=== PATIENT | female | born 1970 | race Caucasian/White ===

== ENCOUNTER 2017-06-16 10:22 | Emergency (ER) | payer MEDICAID ==
[~2017-06-16] VITALS: Ht 160 cm; Wt 100.0 kg
[~2017-06-16 10:22] MED LIST: FLUT1SPR9 NASAL; MEDR4PAK3 PO
[2017-06-16 10:23] VITALS: BP 133/82; PULSE 111; RESP 20; TEMP 98.7; O2SAT 97
[2017-06-16 11:53] LABS: BACTERIA, URINE MANY /hpf; BLOOD, URINE MOD (NEG); COMMENT (UR) CULTURE INDICATED; CULTURE IF INDICATED CULTURE INDICATED; GLUCOSE,URINE NEG (NEG); KETONE, URINE NEG (NEG); SQUAMOUS EPITHELIAL CELL URINE 5 /hpf (0-5); URINE COLOR YELLOW (YELLW/STRAW)
[2017-06-16 12:00] LABS: NITRITE,URINE POS (NEG)
--- NOTE | 2017-06-16 12:34 | PD ---
HPI . left sided flank pain and dysuria x few days Chief Complaint: Flank/Kidney Pain Time Seen by Provider: 12:34 Travel History International Travel<30 days: No Contact w/Intl Traveler<30days: No Traveled to known affect area: No History of Present Illness HPI 46-year-old female with history of urinary tract infections in the past here with complaints of left-sided flank pain and dysuria for the past few days. Patient tells me that she was recently treated for urinary tract infection one month ago with Macrobid, now her symptoms have returned. She says that she feels like her left side is squeezing. She denies any fever or chills. She has no other complaints. PFSH Past Medical History Diminished Hearing: No ?: Not LMP: 05/2017 Menopausal: Yes : 4 Para: 4 Dilation and Curettage (D&C): Yes (polyp rmoval, oblation) Social History Alcohol Use: No Tobacco Use: Yes (1 pack every 3 or 4 days) Substance Use: No Allergies-Medications (Allergen,Severity, Reaction): Coded Allergies: Sulfa (Sulfonamide Antibiotics) (Unverified Allergy, Severe, hives, ) Reported Meds & Prescriptions Reported Meds & Active Scripts Active Lortab (Hydrocodone-Acetaminophen) 5-325 Mg Tab 1 Tab PO Q6H PRN Ciprofloxacin (Ciprofloxacin HCl) 500 Mg Tab 500 Mg PO BID 10 Days Reported Flonase Nasal [place] (Fluticasone Nasal [place]) 50 Mcg/Act [place] 50 Mcg EACH NARE BID Rizatriptan (Rizatriptan Benzoate) 10 Mg Tab 10 Mg PO DIRECTED Review of Systems General / Constitutional: No: Fever Eyes: No: Visual changes HENT: No: Headaches Cardiovascular: No: Chest Pain or Discomfort Respiratory: No: Shortness of Breath Gastrointestinal: No: Abdominal Pain Genitourinary: Positive: Dysuria, Flank Pain Musculoskeletal: No: Pain Skin: No Rash Neurologic: No: Weakness Psychiatric: No: Depression Endocrine: No: Polydipsia Hematologic/Lymphatic: No: Easy Bruising Physical Exam Narrative GENERAL: AAO x 3, no acute distress, Well-nourished, well-developed patient. very comfortable SKIN: Warm and dry. No visible rashes or bruising. HEAD: Normocephalic and atraumatic. EYES: No scleral icterus. No injection or drainage. ENT: No nasal drainage noted. Mucous membranes pink. Airway patent. NECK: Supple, trachea midline. No JVD. CARDIOVASCULAR: Regular rate and rhythm without murmurs, gallops, or rubs. RESPIRATORY: Breath sounds equal bilaterally. No accessory muscle use. No rhonchi or rales. GASTROINTESTINAL: Abdomen soft, non-tender, nondistended. no rebound or guarding EXTREMITIES: No cyanosis or edema. BACK: + left sided CVA tenderness NEURO: CN II-12 intact, foot cutter strength normal b/l, UE and LE 5/5, no focal deficits PSYCH: AAO x 3, normal affect. Data Data Last Documented VS Vital Signs Date Time Temp Pulse Resp B/P Pulse Ox O2 Delivery O2 Flow Rate FiO2 06/16/17 14:15 104 97 Room Air 06/16/17 10:23 98.7 20 133/82 Orders Urinalysis - C+S If Indicated (06/16/17 10:27) Urine Culture (06/16/17 10:50) Complete Blood Count With Diff (06/16/17 12:37) Basic Metabolic Panel (Bmp) (06/16/17 12:37) Ketorolac Inj (Toradol Inj) (06/16/17 12:45) Morphine Inj (Morphine Inj) (06/16/17 13:30) Ondansetron Inj (Zofran Inj) (06/16/17 13:30) Ct Abd/Pel W/O Iv Contrast (06/16/17 ) Ed Urine Pregnancytest Poc (06/16/17 13:23) Acetamin-Hydrocod 325-5 Mg ([place] 5-325 (06/16/17 15:45) Morphine Inj (Morphine Inj) (06/16/17 16:00) Labs Laboratory Tests Test 06/16/17 06/16/17 10:50 13:00 Urine Color YELLOW Urine Turbidity CLOUDY Urine pH 6.0 Urine Specific [place] 1.017 Urine Protein 300 mg/dL Urine Glucose (UA) NEG mg/dL Urine Ketones NEG mg/dL Urine Occult Blood MOD Urine Nitrite POS Urine Bilirubin NEG Urine Urobilinogen LESS THAN 2.0 MG/DL Urine Leukocyte Esterase LARGE Urine RBC 74 /hpf Urine WBC /hpf Urine WBC Clumps MANY Urine Squamous Epithelial 5 /hpf Cells Urine Bacteria MANY /hpf Microscopic Urinalysis Comment CULTURE INDICATED White Blood Count 12.4 TH/MM3 Red Blood Count 4.85 MIL/MM3 Hemoglobin 14.3 GM/DL Hematocrit 41.9 % Mean Corpuscular Volume 86.3 FL Mean Corpuscular Hemoglobin 29.5 PG Mean Corpuscular Hemoglobin 34.2 % Concent Red Cell Distribution Width 13.3 % Platelet Count 298 TH/MM3 Mean Platelet Volume 7.4 FL Neutrophils (%) (Auto) 77.2 % Lymphocytes (%) (Auto) 14.6 % Monocytes (%) (Auto) 6.0 % Eosinophils (%) (Auto) 1.7 % Basophils (%) (Auto) 0.5 % Neutrophils # (Auto) 9.6 TH/MM3 Lymphocytes # (Auto) 1.8 TH/MM3 Monocytes # (Auto) 0.7 TH/MM3 Eosinophils # (Auto) 0.2 TH/MM3 Basophils # (Auto) 0.1 TH/MM3 CBC Comment DIFF FINAL Differential Comment Sodium Level 138 MEQ/L Potassium Level 3.7 MEQ/L Chloride Level 103 MEQ/L Carbon Dioxide Level 26.9 MEQ/L Anion Gap 8 MEQ/L Blood Urea Nitrogen 8 MG/DL Creatinine 1.03 MG/DL Estimat Glomerular Filtration 58 ML/MIN Rate Random Glucose 119 MG/DL Calcium Level 9.1 MG/DL MDM Medical Decision Making Medical Screen Exam Complete: Yes Emergency Medical Condition: Yes Medical Record Reviewed: Yes Differential Diagnosis UTI, pyelonephritis, less likely nephrolithiasis Narrative Course 46-year-old female here with what appears to be urinary tract infection possible pyelonephritis. Labs have been obtained. Patient does report some pain, will provide her with some Toradol here in the emergency department. She is allergic to sulfa. Patient continued to complain of pain. Morphine and zofran given. CT abd/pelvis to check for Kidney stones 1531: patient still in pain: Lortab given I also provided her with Morphine after discussing with Dr. Leonardo. CT with possible stone and what appears to be pyelonephritis. I will treat patient with Cipro outpatient basis. Provide her with some Lortab for pain control. Current follow-up with primary care provider. I discussed the results and treatment plan with patient. She was in agreement. Diagnosis Primary Impression: Pyelonephritis Patient Instructions: General Instructions Additional Instructions: Please return to emergency department if your symptoms return or worsen. Follow up with your primary care provider. Take medications as prescribed. Med/Other Pt SpecificInfo: Prescription(s) given Scripts Hydrocodone-Acetaminophen (Lortab)5-325 Mg Tab1 Tab PO Q6H PRN (PAIN) #12 TAB Ref 0 Prov:Rupesh Leonardo MD 06/16/17 Ciprofloxacin 500 Mg [id number] Mg PO BID 10 Days Ref 0 Prov:Rupesh Leonardo MD 06/16/17 Disposition: 01 DISCHARGE HOME Condition: Stable Miranda Arreola Jun 16, 2017 12:34
[2017-06-16] MEDS ORDERED: FLUT1SPR5 EACH NARE (12:43)
[2017-06-16] MEDS ORDERED: RIZA10TA2 PO (12:43)
[2017-06-16] MEDS ORDERED: KETOROLAC TROMETHAMINE 60 MG/2 ML (IM) VIAL IM ONE (12:45)
[2017-06-16 13:10] LABS: AUTOMATED NEUTROPHIL # 9.6 TH/MM3 (1.8-7.7); BASOPHIL # 0.1 TH/MM3 (0-0.2); BASOPHIL % 0.5 % (0.0-2.0); EOSINOPHIL # 0.2 TH/MM3 (0-0.4); EOSINOPHIL % 1.7 % (0.0-4.0); HEMATOCRIT 41.9 % (35.0-46.0); HEMO FLAGS DIFF FINAL; LYMPH % 14.6 % (9.0-44.0); LYMPHOCYTE # 1.8 TH/MM3 (1.0-4.8); MEAN CELL VOLUME 86.3 FL (80.0-100.0); MEAN CORPUSCULAR HEMOGLOBIN 29.5 PG (27.0-34.0); MEAN CORPUSCULAR HGB CONC 34.2 % (32.0-36.0); NEUT % 77.2 % (16.0-70.0); PLATELET COUNT 298 TH/MM3 (150-450); RED BLOOD COUNT 4.85 MIL/MM3 (4.00-5.30); RED CELL DISTRIBUTION WIDTH 13.3 % (11.6-17.2); WHITE BLOOD COUNT 12.4 TH/MM3 (4.0-11.0)
[2017-06-16 13:26] LABS: BICARBONATE 26.9 MEQ/L (21.0-32.0); POTASSIUM 3.7 MEQ/L (3.5-5.1)
[2017-06-16] MEDS ORDERED: ONDANSETRON HCL 4 MG/2 ML VIAL IV PUSH ONE (13:30)
[2017-06-16] MEDS ORDERED: MORPHINE SULFATE 4 MG/ML INJ IV PUSH ONE ×2 (13:30→16:00)
[2017-06-16 14:15] VITALS: PULSE 104; O2SAT 97
[2017-06-16] MEDS ORDERED: ACETAMINOPHEN/HYDROcodone 325 MG/5 MG TAB PO ONE (15:45)
--- NOTE | 2017-06-16 15:47 | RADRPT ---
EXAM DATE/TIME: 06/16/2017 15:15 [facility] COMPARISON: No previous studies available for comparison. INDICATIONS : Patient complains of left flank pain. ORAL CONTRAST: No oral contrast ingested. RADIATION DOSE: 8.52 CTDIvol (mGy) MEDICAL HISTORY : None SURGICAL HISTORY : None. ENCOUNTER: Initial ACUITY: 3 days PAIN SCALE: 6/10 LOCATION: Left flank TECHNIQUE: Volumetric scanning of the abdomen and pelvis was performed. Using automated exposure control and ad justment of the mA and/or kV according to patient size, radiation dose was kept as low as reasonably achievable to obtain optimal diagnostic quality images. DICOM format image data is available electro nically for review and comparison. FINDINGS: LOWER LUNGS: The visualized lower lungs are clear. LIVER: Homogeneous density without lesion. There is no dilation of the biliary tree. No calcified gallston es. SPLEEN: Normal size without lesion. PANCREAS: Within normal limits. KIDNEYS: Normal in size and shape. There is no mass, stone, or hydronephrosis. There is some minimal thickeni ng of the left renal pelvis. The left ureter is questionably thickened. ADRENAL GLANDS: Within normal limits. VASCULAR: There is no aortic aneurysm. BOWEL/MESENTERY: The stomach, small bowel, and colon demonstrate no acute abnormality. There is no free intraperitone al air or fluid. ABDOMINAL WALL: There is a minimal umbilical hernia containing mesenteric fat. RETROPERITONEUM: There is no lymphadenopathy. BLADDER: No wall thickening or mass. REPRODUCTIVE: No pelvic masses seen. Bilateral fallopian tube occlusion devices are seen. INGUINAL: There is no lymphadenopathy or hernia. MUSCULOSKELETAL: Within normal limits for patient age. CONCLUSION: Questionable thickening of the left renal pelvis and left ureter which raises the possibility of eith er a passed stone or inflammatory change/pyelonephritis. This can be correlated clinically. Rachid Fernández MD on June 16, 2017 at 15:39 Board Certified Radiologist. This report was verified electronically.
[2017-06-16] MEDS ORDERED: CIPR500T2 PO (15:51)
[2017-06-16] MEDS ORDERED: HYDR-3533 PO (15:51)
[2017-06-16 15:57] VITALS: BP 137/74; PULSE 103; RESP 21; O2SAT 99
== END 2017-06-16 17:16 | disposition home or self-care (01) ==
LOC: NEPD 10:22
DX: N10 Acute pyelonephritis (principal); B96.29 Other Escherichia coli [E. coli] as the cause of diseases classified elsewhere
CPT/HCPCS: 74176; 80048; 81001; 84703; 85025; 87077; 87086; 87186; 96372; 96374; 96375; 96376; 99285; J1885; J2270; J2405

== ENCOUNTER 2017-08-01 16:51 | Emergency (ER) | payer MEDICAID ==
[~2017-08-01] VITALS: Ht 165.1 cm; Wt 100.0 kg
[~2017-08-01 16:51] MED LIST changes: +CIPR500T2 PO; +FLUT1SPR5 EACH NARE; -FLUT1SPR9 NASAL; +HYDR-3533 PO; -MEDR4PAK3 PO; +RIZA10TA2 PO
[2017-08-01 16:52] VITALS: BP 143/91; PULSE 108; RESP 16; TEMP 97.8; O2SAT 97
--- NOTE | 2017-08-01 17:01 | PD ---
Physical Exam Date Seen by Provider: Aug 01, 2017 Time Seen by Provider: 16:58 Data Data Last Documented VS Vital Signs Date Time Temp Pulse Resp B/P (MAP) Pulse Ox O2 Delivery O2 Flow Rate FiO2 08/01/17 16:52 97.8 108 16 143/91 (108) 97 MDM Supervised Visit with CHRISTOPHER: No Narrative Course 47-year-old female presents to the ED for evaluation 24 hour history of abdominal cramping, watery diarrhea. 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 She is visiting from [place]. She called her primary care who prescribed 1 gram of azithromycin. Patient states she took the medication 5 days ago. Vitals reviewed. Patient seen in triage, awaiting bed placement. Ivy Agosto Aug 01, 2017 17:01
[2017-08-02] MEDS ORDERED: METR-1 PO (09:42)
== END 2017-08-01 19:00 | disposition left against medical advice (07) ==
LOC: NED 16:51
DX: R10.9 Unspecified abdominal pain (principal); R19.7 Diarrhea, unspecified; Z53.21 Procedure and treatment not carried out due to patient leaving prior to being seen by health care provider
CPT/HCPCS: 99281

== ENCOUNTER 2017-08-02 09:09 | Emergency (ER) | payer MEDICAID ==
[2017-08-02 09:12] VITALS: BP 157/77; PULSE 95; RESP 15; TEMP 97.8; O2SAT 99
[2017-08-02] MEDS ORDERED: METR-1 PO (09:42)
--- NOTE | 2017-08-02 09:42 | PD ---
HPI Chief Complaint: GI Complaint Time Seen by Provider: 09:25 Travel History International Travel<30 days: No Contact w/Intl Traveler<30days: No Traveled to known affect area: No History of Present Illness HPI 47-year-old female arrives with diarrhea for about 3 days. She took azithromycin for gonorrhea about 5 days ago. She reports prior history of C. difficile colitis and states that today's feels same. Mild generalized abdominal pain reported. No fever. Positive chills. No vomiting. No blood in stool. PFSH Past Medical History Diminished Hearing: No Reproductive: Yes (hx gonnorhea) Migraines: Yes ?: Unknown Menopausal: Yes : 4 Para: 4 Dilation and Curettage (D&C): Yes (polyp rmoval, oblation) Past Surgical History Other Surgery: Yes (e-sure) Social History Alcohol Use: Yes (1-2 times per week) Tobacco Use: Yes (1 pack every 3 or 4 days) Substance Use: No Allergies-Medications (Allergen,Severity, Reaction): Coded Allergies: Sulfa (Sulfonamide Antibiotics) (Unverified Allergy, Severe, hives, ) Reported Meds & Prescriptions Reported Meds & Active Scripts Active Flagyl (Metronidazole) 500 Mg Tab 500 Mg PO TID 10 Days Lortab (Hydrocodone-Acetaminophen) 5-325 Mg Tab 1 Tab PO Q6H PRN Ciprofloxacin (Ciprofloxacin HCl) 500 Mg Tab 500 Mg PO BID 10 Days Reported Flonase Nasal [place] (Fluticasone Nasal [place]) 50 Mcg/Act [place] 50 Mcg EACH NARE BID Rizatriptan (Rizatriptan Benzoate) 10 Mg Tab 10 Mg PO DIRECTED Review of Systems Except as stated in HPI: all other systems reviewed are Neg General / Constitutional: No: Fever Physical Exam Narrative GENERAL: 47-year-old female pleasant well-nourished well-developed SKIN: Focused skin assessment warm/dry. HEAD: Atraumatic. Normocephalic. EYES: Pupils equal and round. No scleral icterus. No injection or drainage. ENT: No nasal bleeding or discharge. Mucous membranes pink and moist. NECK: Trachea midline. No JVD. CARDIOVASCULAR: Regular rate and rhythm. No murmur appreciated. RESPIRATORY: No accessory muscle use. Clear to auscultation. Breath sounds equal bilaterally. GASTROINTESTINAL: Abdomen soft, non-tender, nondistended. Hepatic and splenic margins not palpable. MUSCULOSKELETAL: No obvious deformities. No clubbing. No cyanosis. No edema. NEUROLOGICAL: Awake and alert. No obvious cranial nerve deficits. Motor grossly within normal limits. Normal speech. PSYCHIATRIC: Appropriate mood and affect; insight and judgment normal. Data Data Last Documented VS Vital Signs Date Time Temp Pulse Resp B/P (MAP) Pulse Ox O2 Delivery O2 Flow Rate FiO2 08/02/17 09:29 18 08/02/17 09:12 97.8 95 157/77 (103) 99 vital signs reviewed MDM Medical Decision Making Medical Screen Exam Complete: Yes Emergency Medical Condition: Yes Differential Diagnosis C. difficile colitis, IBS, colitis, diarrhea Narrative Course Reasonably high probability of C diff diarrhea. Flagyl script. Diagnosis Primary Impression: Diarrhea Qualified Codes: R19.7 - Diarrhea, unspecified Referrals: Jonna Chen MD, Roy MD call for appointment Bennett Fierro MD Additional Instructions: You have a choice when it comes to health care, and we are glad that you chose [facility]. Hopefully, we have met your expectations on today's visit. You are welcome to return to [facility] at any time, as we are committed to meeting the health care needs of our community. Med/Other Pt SpecificInfo: Prescription(s) given Scripts Metronidazole (Flagyl) 500 Mg Tab 500 MG PO TID for Infection for 10 Days, TAB 0 Refills Prov: David Spear MD 08/02/17 Disposition: 01 DISCHARGE HOME Condition: Stable David Spear MD Aug 02, 2017 09:42
== END 2017-08-02 18:51 | disposition home or self-care (01) ==
LOC: NEPC 09:09
DX: R19.7 Diarrhea, unspecified (principal); R10.84 Generalized abdominal pain; F17.200 Nicotine dependence, unspecified, uncomplicated; Z86.19 Personal history of other infectious and parasitic diseases
CPT/HCPCS: 99283